=== PATIENT | male | born 1965 | race Caucasian/White ===

== ENCOUNTER 2022-02-02 13:53 | Outpatient (CLI) | payer BC | END 2022-02-02 13:54 | disposition home or self-care (01) | LOC: CSHRAD 13:53 | PROVIDERS: ATTEND Physician Assistant Medical | DX: K21.9 Gastro-esophageal reflux disease without esophagitis (principal); F45.8 Other somatoform disorders | CPT/HCPCS: 74220 ==

== ENCOUNTER 2022-05-11 15:20 | Outpatient (CLI) | payer BC ==
[~2022-05-11 15:20] MED LIST: Iopamidol 370 76% 100 ML VIAL ONE
[2022-05-11 16:33] LABS: Estimated GFR-MDRD - POC Greater than 90
== END 2022-05-11 15:21 | disposition home or self-care (01) ==
LOC: CSHCT 15:20
PROVIDERS: ATTEND Otolaryngology
DX: K21.9 Gastro-esophageal reflux disease without esophagitis (principal)
CPT/HCPCS: 70491; 82565

== ENCOUNTER 2022-07-12 22:32 | Emergency (ER) | payer BC | END 2022-07-12 23:35 | disposition home or self-care (01) | LOC: CSHERS 22:32 | DX: J02.9 Acute pharyngitis, unspecified (principal); F17.220 Nicotine dependence, chewing tobacco, uncomplicated; E11.9 Type 2 diabetes mellitus without complications; E03.9 Hypothyroidism, unspecified; I10 Essential (primary) hypertension; Z79.4 Long term (current) use of insulin | CPT/HCPCS: 99282 ==

== ENCOUNTER 2022-08-17 15:30 | Outpatient (CLI) | payer BC | END 2022-08-17 15:31 | disposition home or self-care (01) | LOC: CSHLAB 15:30 | PROVIDERS: ATTEND Physician Assistant Medical | DX: Z20.822 Contact with and (suspected) exposure to COVID-19 (principal); R13.12 Dysphagia, oropharyngeal phase; K21.9 Gastro-esophageal reflux disease without esophagitis | CPT/HCPCS: 87811 ==

== ENCOUNTER 2022-08-19 09:26 | Outpatient (CLI) | payer BC | END 2022-08-19 09:27 | disposition home or self-care (01) | LOC: CSHRAD 09:26 | PROVIDERS: ATTEND Physician Assistant Medical | DX: R13.12 Dysphagia, oropharyngeal phase (principal); K21.9 Gastro-esophageal reflux disease without esophagitis | CPT/HCPCS: 74230 ==

== ENCOUNTER 2022-09-10 18:45 | Emergency (ER) | payer BC ==
[2022-09-10 19:44] LABS: Bilirubin Neg (Negative); Blood, Urine Negative (Negative); Clarity Clear (Clear); Glucose, Urine (Dipstick) Normal (Negative); Ketone, Urine Negative (Negative); Leukocyte 25 (Negative); Nitrite Negative (Negative); Protein, Urine (Dipstick) Negative (Neg-Trace); Specific Gravity, Urine 1.005 (1.005-1.030); Urobilinogen Normal mg/dL (Less than 2)
[2022-09-10 19:53] LABS: Bacteria/HPF Rare-Few HPF (None Seen); RBC/HPF 0-3 HPF (0-3); Squamous Epithelial 0-3 HPF (0-3); WBC/HPF 0-3 HPF (0-3)
== END 2022-09-10 19:48 | disposition home or self-care (01) ==
LOC: CSHERS 18:45
DX: N41.0 Acute prostatitis (principal); F17.220 Nicotine dependence, chewing tobacco, uncomplicated; E11.9 Type 2 diabetes mellitus without complications; E03.9 Hypothyroidism, unspecified; I10 Essential (primary) hypertension
CPT/HCPCS: 81003; 81015; 87086; 99283

== ENCOUNTER 2022-10-13 10:12 | Outpatient (CLI) | payer BC ==
[~2022-10-13 10:12] MED LIST changes: -Iopamidol 370 76% 100 ML VIAL ONE; +Magnevist 469MG/ML 20 ML VIAL ONE
== END 2022-10-13 10:13 | disposition home or self-care (01) ==
LOC: CSHMRI 10:12
PROVIDERS: ATTEND Otolaryngology
DX: M54.2 Cervicalgia (principal); R13.10 Dysphagia, unspecified
CPT/HCPCS: 70543

== ENCOUNTER 2024-08-30 22:16 | Emergency (ER) | payer BC, OTHER | END 2024-08-30 23:54 | disposition home or self-care (01) | LOC: CSHERS 22:16 | DX: M79.605 Pain in left leg (principal); L98.9 Disorder of the skin and subcutaneous tissue, unspecified; E11.9 Type 2 diabetes mellitus without complications; I10 Essential (primary) hypertension; F17.220 Nicotine dependence, chewing tobacco, uncomplicated; Z55.0 Illiteracy and low-level literacy; Z79.4 Long term (current) use of insulin; I48.91 Unspecified atrial fibrillation; Z79.82 Long term (current) use of aspirin | CPT/HCPCS: 99283 ==